=== PATIENT | female | born 1990 | race Caucasian/White ===

== ENCOUNTER 2023-12-16 13:02 | Outpatient (CLI) | payer OTHER | END 2023-12-16 13:27 | disposition home or self-care (01) | LOC: NST 13:02 | PROVIDERS: ATTEND Obstetrics & Gynecology | DX: Z34.83 Encounter for supervision of other normal pregnancy, third trimester (principal) ==

== ENCOUNTER 2023-12-23 14:47 | Outpatient (CLI) | payer OTHER | END 2023-12-23 16:09 | disposition home or self-care (01) | LOC: NST 14:47 | PROVIDERS: ATTEND Obstetrics & Gynecology Maternal & Fetal Medicine | DX: Z34.83 Encounter for supervision of other normal pregnancy, third trimester (principal) ==

== ENCOUNTER → 2024-01-07 | Outpatient (CLI) | payer OTHER | END | disposition home or self-care (01) | LOC: NST 13:40 | PROVIDERS: ATTEND Obstetrics & Gynecology Maternal & Fetal Medicine | DX: Z34.83 Encounter for supervision of other normal pregnancy, third trimester (principal) ==

== ENCOUNTER 2024-01-28 08:49 | Outpatient (CLI) | payer OTHER | END 2024-01-28 09:32 | disposition home or self-care (01) | LOC: NST 08:49 | PROVIDERS: ATTEND Obstetrics & Gynecology Gynecology | DX: Z34.83 Encounter for supervision of other normal pregnancy, third trimester (principal) ==

== ENCOUNTER 2024-02-01 15:51 | Inpatient (IN) | payer OTHER ==
[~2024-02-01] VITALS: Ht 152.4 cm; Wt 3.2 kg
[2024-02-03 07:47] VITALS: BP 147/66
[2024-02-03 08:32] LABS: HEMATOCRIT 40.6 % (36.0-45.00); HEMOGLOBIN 14.1 g/dL (12.0-15.00); MEAN CELL VOLUME 90.8 fL (80.00-100.00); MEAN CORPUSCULAR HEMOGLOBIN 31.6 pg (27.00-32.0); MEAN CORPUSCULAR HGB CONC 34.8 g/dl (32.0-36.0); PLATELET COUNT 183 K/uL (150-450); RED BLOOD COUNT 4.47 M/uL (4.00-6.00); RED CELL DISTRIBUTION WIDTH 13.8 % (11.5-14.5)
[2024-02-03 09:06] LABS: INR 0.94; PARTIAL THROMBOPLASTIN TIME 29.4 SECONDS (22.0-34.0); PROTHROMBIN TIME 10.3 SECONDS (9.0-11.5)
[2024-02-03] MEDS ORDERED: HUMULIN R100 UNIT/1 SUBCUTANEO (09:09)
[2024-02-03] MEDS ORDERED: PRENATAL TABLE1 EAC4 PO (09:09)
[2024-02-03] MEDS ORDERED: VALTREX1000 MG PO (09:10)
[2024-02-03] MEDS ORDERED: HUMULIN N100 UNIT/2 IM (09:10)
[2024-02-03] MEDS ORDERED: SYNTHROID150 MCG PO (09:10)
[2024-02-03 09:19] LABS: ALBUMIN 2.8 gm/dL (3.4-5.0); BILIRUBIN TOTAL 0.53 mg/dL (0.3-1.2); CALCIUM 8.8 mg/dL (8.5-10.1); CREATININE SERUM 0.54 mg/dL (0.55-1.02); GFR 129.23; GLOBULINA 4.2 G/DL (2.4-3.5); POTASSIUM 3.96 mEq/L (3.5-5.1)
[2024-02-03] MEDS ORDERED: AMPICILLIN SODIUM 2,000 MG VIAL IV ONE (09:30)
[2024-02-03] MEDS ORDERED: OXYTOCIN 500 ML IV ONE (09:30)
[2024-02-03] MEDS ORDERED: AMPICILLIN SODIUM 1,000 MG VIAL IV SCH (12:00)
[2024-02-03 12:13] VITALS: BP 132/45
[2024-02-03 15:38] VITALS: BP 139/62
[2024-02-03] MEDS ORDERED: CEFAZOLIN SODIUM 1,000 MG VIAL IV ONE (19:30)
[2024-02-03] MEDS ORDERED: OXYTOCIN 10 UNITS/ML VIAL IV ONE (19:30)
[2024-02-03] MEDS ORDERED: ERYTHROMYCIN BASE OPHT 1GM EACH TUBE OP ONE (19:30)
[2024-02-03] MEDS ORDERED: MORPHINE SULFATE 4 MG/ML VIAL IV ONE (20:00)
[2024-02-03] MEDS ORDERED: KETOROLAC TROMETHAMINE 30 MG VIAL IV ONE (20:20)
[2024-02-03] MEDS ORDERED: KETOROLAC TROMETHAMINE 30 MG VIAL IV SCH (20:20)
[2024-02-03] MEDS ORDERED: OXYTOCIN 1,000 ML IV ONE (20:30)
[2024-02-03] MEDS ORDERED: MORPHINE SULFATE 4 MG/ML VIAL IV SCH (21:00)
[2024-02-03 21:10] VITALS: BP 122/68
[2024-02-04 02:35] VITALS: BP 139/75
[2024-02-04] MEDS ORDERED: LEVOTHYROXINE SODIUM 150 MCG TABLET PO SCH (06:00)
[2024-02-04] MEDS ORDERED: ACETAMINOPHEN 500 MG GEL..CAP PO SCH (06:00)
[2024-02-04 06:53] LABS: HEMOGLOBIN 10.6 g/dL (12.0-15.00); MEAN CELL VOLUME 92.8 fL (80.00-100.00); MEAN CORPUSCULAR HEMOGLOBIN 31.8 pg (27.00-32.0); MEAN CORPUSCULAR HGB CONC 34.2 g/dl (32.0-36.0); PLATELET COUNT 161 K/uL (150-450); RED BLOOD COUNT 3.34 M/uL (4.00-6.00); RED CELL DISTRIBUTION WIDTH 13.9 % (11.5-14.5)
[2024-02-04] MEDS ORDERED: INSULIN NPH HUMAN ISOPHANE 1,000 UNITS/10 ML UNITS SUBCUTANEO SCH ×2 (08:00→21:00)
[2024-02-04 08:55] VITALS: BP 148/70
[2024-02-04] MEDS ORDERED: PNV,CALCIUM 72/IRON/FOLIC ACID 1 TAB TABLET PO SCH (09:00)
[2024-02-04] MEDS ORDERED: SIMETHICONE 125 MG CAPSULE PO SCH (09:00)
[2024-02-04] MEDS ORDERED: GABAPENTIN 300 MG CAPSULE PO SCH (09:00)
[2024-02-04] MEDS ORDERED: SOD FERRIC GLUC COMPLX/SUCROSE 62.5 MG/5 ML AMPUL IV SCH (09:00)
[2024-02-04] MEDS ORDERED: DOCUSATE SODIUM 100MG CAP PO SCH (09:00)
[2024-02-04] MEDS ORDERED: IBUprofen 600 MG TABLET PO SCH (12:00)
[2024-02-04 12:45] VITALS: BP 133/80
[2024-02-04 17:01] VITALS: BP 112/72
[2024-02-04 21:09] VITALS: BP 125/75
[2024-02-05 00:16] VITALS: BP 111/70
[2024-02-05 06:48] LABS: HEMATOCRIT 31.9 % (36.0-45.00); HEMOGLOBIN 11.1 g/dL (12.0-15.00); MEAN CELL VOLUME 93.4 fL (80.00-100.00); MEAN CORPUSCULAR HEMOGLOBIN 32.6 pg (27.00-32.0); MEAN CORPUSCULAR HGB CONC 34.9 g/dl (32.0-36.0); PLATELET COUNT 152 K/uL (150-450); RED BLOOD COUNT 3.42 M/uL (4.00-6.00); RED CELL DISTRIBUTION WIDTH 13.7 % (11.5-14.5)
[2024-02-05 08:03] LABS: ALBUMIN 2.2 gm/dL (3.4-5.0); BILIRUBIN TOTAL 0.26 mg/dL (0.3-1.2); CALCIUM 7.9 mg/dL (8.5-10.1); CREATININE SERUM 0.4 mg/dL (0.55-1.02); GFR 182.71; GLOBULINA 3.3 G/DL (2.4-3.5); POTASSIUM 3.79 mEq/L (3.5-5.1); TOTAL PROTEIN 5.5 gm/dL (6.4-8.2)
[2024-02-05 10:31] VITALS: BP 134/72
[2024-02-05 16:00] VITALS: BP 130/69
[2024-02-06] VITALS: BP 128/76
[2024-02-06 08:08] VITALS: BP 134/85
== END 2024-02-06 13:22 | disposition home or self-care (01) | DRG 788 ==
LOC: LDR 02-03 07:23 → O/R 02-03 17:54 → OB/GYN 02-03 19:13 → LDR 02-25 15:50
PROVIDERS: ADMIT Obstetrics & Gynecology Gynecology; ATTEND Obstetrics & Gynecology Gynecology
PROC: 4A1HXCZ Monitoring of Products of Conception, Cardiac Rate, External Approach (ICD-10-PCS; 2024-02-03)
PROC: 10D00Z1 Extraction of Products of Conception, Low, Open Approach (ICD-10-PCS; principal; 2024-02-03 17:45)
DX: O82 Encounter for cesarean delivery without indication (principal); O62.1 Secondary uterine inertia; Z3A.37 37 weeks gestation of pregnancy; Z37.0 Single live birth; Z20.822 Contact with and (suspected) exposure to COVID-19

== ENCOUNTER 2024-02-01 17:05 | Outpatient (CLI) | payer OTHER ==
[2024-02-01 17:18] VITALS: BP 114/74
== END 2024-02-01 18:04 | disposition home or self-care (01) ==
LOC: NST 17:05
PROVIDERS: ATTEND Obstetrics & Gynecology
DX: Z34.83 Encounter for supervision of other normal pregnancy, third trimester (principal)

== ENCOUNTER 2024-03-02 07:50 | Emergency (ER) | payer OTHER ==
[~2024-03-02] VITALS: Ht 152.4 cm; Wt 86.2 kg
[~2024-03-02 07:50] MED LIST: HUMULIN N100 UNIT/2 IM; HUMULIN R100 UNIT/1 SUBCUTANEO; PRENATAL TABLE1 EAC4 PO; SYNTHROID150 MCG PO; VALTREX1000 MG PO
[2024-03-02] MEDS ORDERED: HUMULIN N100 UNIT/2 IJ (08:10)
[2024-03-02] MEDS ORDERED: PRENATAL 19 CH1 EAC1 PO (08:11)
[2024-03-02] MEDS ORDERED: FAMOTIDINE/PF 20 MG/2 ML VIAL IV PUSH STA (08:47)
[2024-03-02] MEDS ORDERED: ONDANSETRON HCL 2 MG/ML VIAL IV STA (08:47)
[2024-03-02 09:29] LABS: HEMATOCRIT 36.5 % (36.0-45.00); HEMOGLOBIN 12.7 g/dL (12.0-15.00); MEAN CELL VOLUME 89.9 fL (80.00-100.00); MEAN CORPUSCULAR HEMOGLOBIN 31.3 pg (27.00-32.0); MEAN CORPUSCULAR HGB CONC 34.8 g/dl (32.0-36.0); PLATELET COUNT 266 K/uL (150-450); RED BLOOD COUNT 4.06 M/uL (4.00-6.00); RED CELL DISTRIBUTION WIDTH 12.9 % (11.5-14.5)
[2024-03-02 09:51] LABS: ALBUMIN 3.7 gm/dL (3.4-5.0); BILIRUBIN TOTAL 0.48 mg/dL (0.3-1.2); CALCIUM 9.2 mg/dL (8.5-10.1); CREATININE SERUM 0.49 mg/dL (0.55-1.02); GFR 144.56; GLOBULINA 4.3 G/DL (2.4-3.5); POTASSIUM 3.91 mEq/L (3.5-5.1)
== END 2024-03-02 10:10 | disposition home or self-care (01) ==
LOC: ER 07:51
PROVIDERS: General Practice
DX: K29.70 Gastritis, unspecified, without bleeding (principal); R11.0 Nausea; Z91.013 Allergy to seafood